=== PATIENT | male | born 2000 | race Caucasian/White ===

== ENCOUNTER 2021-06-19 19:27 | Emergency (ER) | payer OTHER ==
[~2021-06-19] VITALS: Ht 180.3 cm; Wt 79.5 kg
--- OUTSIDE RECORDS SUMMARY | 2021-06-19 20:40 | CCD ---
Author Author [facility] Address Unknown Phone Unavailable Support Name Relationship Address Phone [facility] Next Of Kin [address] [place] [address] Unavailable Re-disclosure Warning The records that you are about to access may contain information from federally-assisted alcohol or drug abuse programs. If such information is present, then the following federally mandated warning applies: This information has been disclosed to you from records protected by federal confidentiality rules (42 CFR part 2). The federal rules prohibit you from making any further disclosure of this information unless further disclosure is expressly permitted by the written consent of the person to whom it pertains or as otherwise permitted by 42 CFR part 2. A general authorization for the release of medical or other information is NOT sufficient for this purpose. The Federal rules restrict any use of the information to criminally investigate or prosecute any alcohol or drug abuse patient.The records that you are about to access may contain highly sensitive health information, the redisclosure of which is protected by Article 27-F of the [facility] Public Health law. If you continue you may have access to information: Regarding HIV / AIDS; Provided by facilities licensed or operated by the [facility] Office of Mental Health; or Provided by the [facility] Office for People With Developmental Disabilities. If such information is present, then the following [facility] mandated warning applies: This information has been disclosed to you from confidential records which are protected by state law. State law prohibits you from making any further disclosure of this information without the specific written consent of the person to whom it pertains, or as otherwise permitted by law. Any unauthorized further disclosure in violation of state law may result in a fine or detention sentence or both. A general authorization for the release of medical or other information is NOT sufficient authorization for further disc losure. Medications No Information Insurance Providers Payer name Policy type / Coverage type Policy ID Covered democrat ID Covered democrat's relationship to swift Policy Swift Plan Information [facility] [employer]Y [id number] Problems, Conditions, and Diagnoses No Information Surgeries/Procedures No Information Results No Information Social History No Information
[2021-06-19] MEDS ORDERED: NS 1,000 ML IV ONE (21:20)
[2021-06-19] MEDS ORDERED: ONDANSETRON 4MG/2ML VIAL IV ONE (21:20)
[2021-06-19 21:56] LABS: BASO % 0.4 % (0.0-1.0); EOS # 0.1 10^3/uL (0.0-0.5); HEMATOCRIT 45.9 % (42.0-52.0); HEMOGLOBIN 15.9 g/dl (13.5-17.5); LYMPH # 2.2 10^3/uL (1.5-5.0); LYMPH % 32.8 % (24.0-44.0); MEAN CORPUSCULAR HEMOGLOBIN 29.7 pg (27.0-33.0); MEAN CORPUSCULAR HGB CONC 34.6 g/dl (32.0-36.5); MEAN CORPUSCULAR VOLUME 85.8 fl (80.0-96.0); MONO # 0.4 10^3/uL (0.0-0.8); NEUTROPHILS % 59.7 % (36.0-66.0); PLATELET COUNT, AUTOMATED 156 10^3/uL (150-450); RED BLOOD COUNT 5.35 10^6/uL (4.30-6.10); WHITE BLOOD COUNT 6.7 10^3/uL (4.0-10.0)
[2021-06-19 22:18] LABS: ERYTHROCYTE SEDIMENTATION RATE 2 mm/hr (0-15)
[2021-06-19 22:21] LABS: CK-MB VALUE MASS 1.7 NG/ML (<3.6); CPK CREATINE PHOSPHOKINASE 380 U/L (39-308); MB/CK RELATIVE INDEX 0.45 (< OR =4)
[2021-06-19 22:31] LABS: C REACTIVE PROTEIN QUANTITATIV < 0.30 MG/DL (0.00-0.30); MAGNESIUM LEVEL 2.2 MG/DL (1.8-2.4)
[2021-06-19 23:00] LABS: FREE THYROXINE INDEX 2.4 % (1.4-3.8); T UPTAKE 34 % (33-40); THYROXINE (T4) 7.2 UG/DL (4.5-12.0)
[2021-06-19 23:06] LABS: HEMOGLOBIN A1c 5.1 %
[2021-06-19 23:44] LABS: MONO REFLEX EBV COMP NEGATIVE (NEGATIVE)
[2021-06-19 23:58] LABS: TROPONIN I < 0.02 NG/ML (< 0.10)
--- NOTE | 2021-06-20 00:22 | REPVR ---
PROCEDURE INFORMATION: Exam: CT Head Without Contrast Exam date and time: 06/19/2021 11:13 PM Age: 21 years old Clinical indication: Dizziness; Additional info: Polyuria, polydipsia, lightheadedness, nl labs TECHNIQUE: Imaging protocol: Computed tomography of the head without contrast. Radiation optimization: All CT scans at this facility use at least one of these dose optimization techniques: automated exposure control; mA and/or kV adjustment per patient size (includes targeted exams where dose is matched to clinical indication); or iterative reconstruction. COMPARISON: No relevant prior studies available. FINDINGS: Brain: No intracranial hemorrhage or extra-axial fluid collection. No evidence of mass effect or midline shift. Reid-white matter differentiation is intact. Cerebral ventricles: No ventriculomegaly. Paranasal sinuses: Visualized sinuses are unremarkable. No fluid levels. Mastoid air cells: Unremarkable. Bones/joints: No acute osseus lesion or fracture. Soft tissues: Unremarkable. IMPRESSION: No acute intracranial pathology. Electronically signed by: Broderick Galvan On 06/20/2021 00:22:11 AM
[2021-06-20] MEDS ORDERED: ONDA4TAB6 PO (01:05)
[2021-06-20 01:22] VITALS: BP 125/71
--- NOTE | 2021-06-22 07:43 | ECGEPIP ---
[facility] - ED Test Date: 2021-06-19 Pat Name: JAYCOB BUSTOS Department: Room: - Gender: Male [employer] Helper: MADELINE : 2000 Requested By: MADELYN Blanchard PA-C Order Number: [id number] Reading MD: Malika Fragoso Measurements Intervals [place] Rate: 61 P: 45 NC: 152 QRS: 84 QRSD: 94 T: 44 QT: 390 QTc: 392 Interpretive Statements Sinus rhythm with marked sinus arrhythmia No prior Electronically Signed on 06-22-2021 7:43:04 EST by Malika Fragoso
[2021-06-22 13:12] LABS: EBV AB TO NUCLEAR ANTIGEN <18.0 U/mL (0.0-17.9); EBV VIRAL CAPSID AG IgG <18.0 U/mL (0.0-17.9); EBV VIRAL CAPSID AG IgM <36.0 U/mL (0.0-35.9); Lyme Disease IgG Ab 18 kDa Ban Absent (.); Lyme Disease IgG Ab 23 kDa Ban Absent (.); Lyme Disease IgG Ab 28 kDa Ban Absent (.); Lyme Disease IgG Ab 30 kDa Ban Absent (.); Lyme Disease IgG Ab 39 kDa Ban Absent (.); Lyme Disease IgG Ab 41 kDa Ban Absent (.); Lyme Disease IgG Ab 45 kDa Ban Absent (.); Lyme Disease IgG Ab 58 kDa Ban Absent (.); Lyme Disease IgG Ab 66 kDa Ban Absent (.); Lyme Disease IgG Ab 93 kDa Ban Absent (.); Lyme Disease IgG West Blot Int Negative (.); Lyme Disease IgG/IgM Antibodie <0.91 ISR (0.00-0.90); Lyme Disease IgM Ab 23 kDa Ban Absent (.); Lyme Disease IgM Ab 39 kDa Ban Absent (.); Lyme Disease IgM Ab 41 kDa Ban Absent (.); Lyme Disease IgM Ab Quantitati 1.15 index (0.00-0.79); Lyme Disease IgM West Blot Int Negative (.)
== END 2021-06-20 01:54 | disposition home or self-care (01) ==
LOC: M ED 19:27
DX: R63.4 Abnormal weight loss (principal); R42 Dizziness and giddiness; R63.1 Polydipsia; R35.89 Other polyuria; F17.200 Nicotine dependence, unspecified, uncomplicated; Z88.0 Allergy status to penicillin
CPT/HCPCS: 70450; 80047; 81001; 82010; 82550; 82553; 83036; 83735; 84436; 84443; 84479; 84484; 85025; 85652; 86140; 86308; 86617; 86664; 86665; 93005; 96361; 96374; 99284; J2405

== ENCOUNTER 2022-08-26 18:18 | Emergency (ER) | payer OTHER ==
[~2022-08-26] VITALS: Ht 180.3 cm; Wt 84.1 kg
[~2022-08-26 18:18] MED LIST: ONDA4TAB6 PO
[2022-08-26] MEDS ORDERED: MUCI600T31 PO (18:32)
[2022-08-26 21:57] VITALS: BP 149/88
== END 2022-08-26 21:56 | disposition left against medical advice (07) ==
LOC: M ED 18:18
DX: Z53.21 Procedure and treatment not carried out due to patient leaving prior to being seen by health care provider (principal)

== ENCOUNTER 2022-08-28 13:14 | Emergency (ER) | payer OTHER ==
[~2022-08-28] VITALS: Ht 180.3 cm; Wt 88.5 kg
[~2022-08-28 13:14] MED LIST changes: +MUCI600T31 PO
[2022-08-28] MEDS ORDERED: OXYMETAZOLINE 0.05% NASAL SPRAY (AFRIN) ONE (15:10)
[2022-08-28 15:51] VITALS: BP 139/87
== END 2022-08-28 16:01 | disposition home or self-care (01) ==
LOC: M ED 13:14
DX: J30.9 Allergic rhinitis, unspecified (principal); Z88.0 Allergy status to penicillin